=== PATIENT | female | born 1960 | race African-American/Black ===

== ENCOUNTER 2021-12-22 14:00 | Emergency (ER) | payer MEDICAID ==
--- NOTE | 2021-12-22 14:25 | NUR ---
PATIENT LEFT WITHOUT BEING SEEN BY DR. JOHNSON. NO FURTHER CARE PROVIDED FOR PATIENT.
--- NOTE | 2021-12-22 14:44 | NUR ---
PT STATED : :"I WILL COME BACK TOMORROW MORNING".
[2021-12-23] MEDS ORDERED: MICO2CRE VG (11:34)
[2021-12-23] MEDS ORDERED: DIPH25TA53 PO (11:35)
== END 2021-12-22 14:25 | disposition left against medical advice (07) ==
LOC: MED 14:00
DX: M79.10 Myalgia, unspecified site (principal); Z53.21 Procedure and treatment not carried out due to patient leaving prior to being seen by health care provider

== ENCOUNTER 2021-12-23 07:20 | Emergency (ER) | payer MEDICAID ==
[~2021-12-23] VITALS: Ht 149.9 cm; Wt 57.2 kg
[2021-12-23 07:24] VITALS: BP 172/83
--- NOTE | 2021-12-23 07:33 | NUR ---
pt ambulated with steady gait to bed 11
--- NOTE | 2021-12-23 07:39 | NUR ---
DR ARGUETA AT BEDSIDE FOR EVAL
--- NOTE | 2021-12-23 07:45 | NUR ---
61 Y/O FEMALE C/O URINARY FREQUENCY + ITCHING, HEMATURIA, AND BLOOD IN STOOL PRESENT ONLY WHEN WIPING. DENIES DYSURIA, NVD, PAIN. PRESENTED TO [facility] AND WAS DIRECTED TO ER FOR MEDICAL CLEARANCE BEFORE RETURNING. PMH: ASTHMA, HIV
--- NOTE | 2021-12-23 08:29 | NUR ---
URINE HANDED TO [employer] TECH
--- NOTE | 2021-12-23 08:44 | NUR ---
LAB AT BEDSIDE
[2021-12-23 09:22] LABS: ALBUMIN 3.2 g/dL (3.4-5.0); ANION GAP 10.3 (8-16); CREATININE 0.7 mg/dL (0.6-1.3); POTASSIUM 4.3 mmol/L (3.5-5.1); TOTAL BILIRUBIN 0.3 mg/dL (0.0-1.0)
[2021-12-23 09:32] LABS: PROTHROMBIN TIME 13.5 secs (10.8-13.4)
[2021-12-23 09:38] LABS: BASOPHILS % (AUTO) 0.6 % (0.0-2.0); EOSINOPHILS # (AUTO) 0.1 K/uL (0-0.4); EOSINOPHILS % (AUTO) 2.3 % (0.0-4.0); HEMOGLOBIN 13.8 g/dL (12.0-16.0); LYMPHOCYTES # (AUTO) 1.2 K/uL (2.5-16.5); LYMPHOCYTES % (AUTO) 25.4 % (20.5-51.1); MEAN CORPUSCULAR HEMOGLOBIN 23 pg (27-31); MEAN CORPUSCULAR HGB CONC 31 g/dL (33-37); MEAN CORPUSCULAR VOLUME 73.7 fL (80-94); MONOCYTES # (AUTO) 0.7 K/uL (0.8-1.0); MONOCYTES % (AUTO) 13.6 % (1.7-9.3); NEUTROPHILS # (AUTO) 2.8 K/uL (1.8-7.7); NEUTROPHILS % (AUTO) 58.1 % (42.2-75.2); RED CELL DISTRIBUTION WIDTH 15.5 % (11.6-13.7); WHITE BLOOD COUNT (AUTO) 4.9 K/uL (4.8-10.8)
[2021-12-23 10:00] LABS: APPEARANCE,URINE CLEAR (CLEAR); BILIRUBIN,URINE NEGATIVE (NEGATIVE); BLOOD, URINE NEGATIVE (NEGATIVE); COLOR,URINE YELLOW (YELLOW); LEUKOCYTE ESTERASE ,URINE NEGATIVE (NEGATIVE); NITRITE, URINE NEGATIVE (NEGATIVE); UGLUCOSE NEGATIVE (NEGATIVE)
[2021-12-23 10:21] LABS: PLATELET COUNT (AUTO) 132 K/uL (140-450)
--- NOTE | 2021-12-23 10:44 | NUR ---
RESTING IN BED WITH EYES CLOSED, RESPONDS TO VOICE. DENIES PAIN OR DISCOMFORT AT THIS TIME. PT REQUESTED FOOD, SNACK GIVEN AND FINISHED. ALL NEEDS MET AT THIS TIME. BED IN LOW WITH CALL LIGHT IN REACH.
[2021-12-23] MEDS ORDERED: MICO2CRE VG (11:34)
[2021-12-23] MEDS ORDERED: DIPH25TA53 PO (11:35)
--- NOTE | 2021-12-23 11:36 | NUR ---
Female Social Media Project Manager accompanied female patient for Pelvic Exam.
--- NOTE | 2021-12-23 12:05 | NUR ---
CALL PLACED TO [employer] [facility]. PER [facility] ARRANGED, ETA 10 MINUTES.
[2021-12-23 12:08] VITALS: BP 152/75
--- NOTE | 2021-12-23 12:08 | NUR ---
Patient discharged with v/s stable. Written and verbal after care instructions given and explained. Patient alert, oriented and verbalized understanding of instructions. Ambulatory with steady gait. All questions addressed prior to discharge. ID band removed. Patient advised to follow up with PMD. Rx of Benadryl, Monistat given. Patient educated on indication of medication including possible reaction and side effects. Opportunity to ask questions provided and answered.
== END 2021-12-23 12:08 | disposition home or self-care (01) ==
LOC: MED 07:20
DX: B37.9 Candidiasis, unspecified (principal); F19.10 Other psychoactive substance abuse, uncomplicated
CPT/HCPCS: 36415; 80053; 81003; 83605; 85025; 85610; 85730; 99283